=== PATIENT | male | born 1975 | race Two or more races ===

== ENCOUNTER 2024-01-23 00:20 | Emergency (ER) | payer SELFPAY ==
[2024-01-23] MEDS ORDERED: Acetaminophen 500 MG TAB ONE (01:03)
[2024-01-23 01:39] LABS: #Basophils 0.11 10x3/uL (0.0-0.2); %Lymphocytes 18.2 % (21.0-51.0); %Neutrophils 70.4 % (42.0-75.0); Hematocrit 42.8 % (42.0-52.0); Mean Corpuscular Hemoglobin 31.8 pg (27.0-31.0); Mean Corpuscular Volume 90.7 fL (78.0-98.0); Mean Platelet Volume 12.1 fL (7.4-10.4); Platelet Count 257 10x3/uL (130-400); RBC Distribution Width 12.8 % (11.5-14.5); Red Blood Cell (RBC) Count 4.72 mill/uL (4.70-6.10)
[2024-01-23 02:15] LABS: ALT (SGPT) 17 U/L (8-55); AST (SGOT) 17 U/L (5-34); Albumin 3.4 g/dL (3.5-5.0); Alkaline Phosphatase 99 U/L (40-110); Anion Gap 11 mmol/L (10-20); BUN (Urea Nitrogen) 10 mg/dL (8.9-20.6); Bilirubin, Total 0.4 mg/dL (0.2-1.2); Calc. Creatinine Clearance 0 mL/min (70-130); Calcium 9.2 mg/dL (7.8-10.44); Carbon Dioxide 26 mmol/L (22-29); Chloride 106 mmol/L (98-107); Estimated GFR 108; Globulin 3.2 g/dL (2.4-3.5); Glucose 102 mg/dL (70-105); Lipase 39 U/L (8-78); Potassium 3.4 mmol/L (3.5-5.1); Protein, Total 6.6 g/dL (6.0-8.3); Sodium 140 mmol/L (136-145)
[2024-01-23 02:20] LABS: Troponin I Less than 0.010 ng/mL (< 0.028)
[2024-01-23 02:26] LABS: Influenza A by NAA Not Detected (NotDetected); Influenza B by NAA Not Detected (NotDetected); SARS-CoV-2 NAA Rapid Test Not Detected (NotDetected)
[2024-01-23] MEDS ORDERED: Ketorolac Tromethamine 30 MG (1 mL) VIAL ONE (02:36)
[2024-01-23] MEDS ORDERED: Sodium Chloride 0.9% 100 ML ONE (02:36)
[2024-01-23] MEDS ORDERED: cefTRIAXone (ROCEPHIN) 2 GM VIAL ONE (02:36)
[2024-01-23] MEDS ORDERED: Acetaminophen 325 MG TAB PO PRN (02:54)
[2024-01-23] MEDS ORDERED: Ondansetron PF 4 MG/2 ML Vial IVP PRN (02:54)
[2024-01-23] MEDS ORDERED: Ondansetron ODT 4 MG TAB PO PRN (02:55)
[2024-01-23] MEDS ORDERED: Potassium Chloride 20 MEQ TAB PO SCH (03:00)
[2024-01-23 03:31] LABS: Bacteria/HPF None Seen HPF (None Seen); Bilirubin Negative (Negative); Blood, Urine 1+ (Negative); CAUTI Indications for Culture Fever or rigors; Clarity Clear (Clear); Glucose, Urine (Dipstick) Normal (Negative); Ketone, Urine Negative (Negative); Leukocyte Negative Leu/uL (Negative); Nitrite Negative (Negative); Protein, Urine (Dipstick) Negative (Neg-Trace); Specific Gravity, Urine 1.007 (1.002-1.036); Squamous Epithelial None Seen HPF (0-3); Urobilinogen Normal mg/dL (Less than 2); WBC/HPF 0-3 HPF (0-3); pH, Urine 6.5 (5.0-9.0)
[2024-01-23] MEDS ORDERED: Azithromycin 500 MG VIAL ONE (03:31)
[2024-01-23 03:51] LABS: Urine Culture Reflex No No
[2024-01-24] MEDS ORDERED: Azithromycin 500 MG in Sodium Chloride 0.9% 250 ML 250 ML IVPB SCH (03:00)
[2024-01-24] MEDS ORDERED: cefTRIAXone\\ROCEPHIN 1 GM in Sodium Chloride 0.9% 100 ML IVPB SCH (03:00)
== END 2024-01-23 04:45 | disposition home or self-care (01) ==
LOC: ERS 00:20
DX: A41.9 Sepsis, unspecified organism (principal); J18.9 Pneumonia, unspecified organism; F17.210 Nicotine dependence, cigarettes, uncomplicated
CPT/HCPCS: 36415; 71045; 80053; 81001; 83605; 83690; 83880; 84484; 85025; 85379; 87040; 93005; 96361; 96365; 96367; 96375; J0456; J0696; J1885; J3490